=== PATIENT | male | born 2000 | race Caucasian/White ===

== ENCOUNTER 2018-01-26 23:59 | Emergency (ER) | payer MEDICAID ==
[2018-01-26 23:59] VITALS: BMI 34.2
[2018-01-27 00:12] VITALS: BP 135/67; PULSE 79; RESP 20; TEMP 98.3; O2SAT 99
--- NOTE | 2018-01-27 03:35 | C.PDOC ---
Time Seen by Provider: 01/27/18 00:21 Chief Complaint (Nursing): Abdominal Pain Past Medical History Vital Signs: Last Vital Signs Temp 98.3 F 01/27/18 00:08 Pulse 79 01/27/18 00:08 Resp 20 01/27/18 00:08 BP 135/67 01/27/18 00:08 Pulse Ox 99 01/27/18 00:08 Surgical History: Tonsillectomy Family History: States: Unknown Family Hx - Social History Hx Tobacco Use: No Hx Alcohol Use: No Hx Substance Use: No - Immunization History Hx Tetanus Toxoid Vaccination: No Hx Influenza Vaccination: Yes Hx Pneumococcal Vaccination: No ED Course And Treatment O2 Sat by Pulse Oximetry: 99 Disposition - Disposition Disposition: ELOPEMENT - ER ONLY Disposition Time: 00:20 Condition: UNKNOWN - Clinical Impression Clinical Impression: Patient left without being seen
== END 2018-01-27 00:21 | disposition left against medical advice (07) ==
LOC: C.ER 23:59
DX: Z02.89 Encounter for other administrative examinations (principal); R10.9 Unspecified abdominal pain

== ENCOUNTER 2018-04-01 23:31 | Emergency (ER) | payer MEDICAID ==
[2018-04-01 23:31] VITALS: BMI 34.2
[2018-04-01 23:48] VITALS: BP 131/71; PULSE 79; TEMP 99; O2SAT 98
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
[2018-04-02 01:02] VITALS: RESP 20
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
== END 2018-04-02 01:02 | disposition home or self-care (01) ==
LOC: C.ER 23:31
DX: R07.89 Other chest pain (principal); M54.9 Dorsalgia, unspecified; T14.8XXA Other injury of unspecified body region, initial encounter; V49.9XXA Car occupant (driver) (passenger) injured in unspecified traffic accident, initial encounter